=== PATIENT | male | born 2000 | race Caucasian/White ===

== ENCOUNTER 2021-09-29 09:56 | Emergency (ER) | payer OTHER ==
[2021-09-29 10:04] VITALS: BP 140/73
--- NOTE | 2021-09-29 10:28 | XRAY Report ---
PROCEDURE: Hand 3 View RT INDICATIONS: Trauma TECHNIQUE: 3 views of the hand(s) acquired. COMPARISON: None FINDINGS: Bones: Acute oblique fracture through proximal shaft of fifth metacarpal bone is seen with dorsal dis placement and angulation at fracture site. No suspicious bony lesions. Soft tissues: Significant soft tissue swelling over dorsal aspect of fifth metacarpal bone is seen. No suspicious soft tissue calcifications. IMPRESSION: Acute slightly displaced fracture involving proximal fifth metacarpal shaft with overlying soft tissu e swelling. No other fracture or dislocation. Reviewed by: Gui Navarro MD on 09/29/2021 10:26 AM PDT Approved by: Gui Navarro MD on 09/29/2021 10:26 AM PDT Station ID: [id number]
--- NOTE | 2021-09-29 11:20 | ED Physician Documentation ---
PD HPI UPPER EXT INJURY - Stated complaint Stated Complaint: RT HAND INJ - Chief complaint Chief Complaint: Trauma Ext - History obtained from History obtained from: Patient - History of Present Illness Location: Right, Hand Type of injury: Blunt / blow (assembling shelves and part fell onto his hand. Has been hurting since, and not improving.) Timing - onset: How many weeks ago (1) Timing - duration: Weeks (1) Timing - details: Abrupt onset, Still present Worsened by: Moving, Palpating Associated symptoms: Numbness (at times on side of little finger.). No: Weakness Similar symptoms before: Has not had sx before Review of Systems Skin: denies: Abrasion (s), Laceration (s) Neurologic: denies: Focal weakness PD PAST MEDICAL HISTORY - Past Medical History Cardiovascular: None Respiratory: None Musculoskeletal: None - Present Medications Home Medications: Ambulatory Orders Medication Instructions Recorded Confirmed Ibuprofen [Motrin] 600 mg PO TID PRN #25 tab 09/29/21 - Allergies Allergies/Adverse Reactions: Allergies Allergy/AdvReac Type Severity Reaction Status Date / Time No Known Drug Allergies Allergy Verified 09/29/21 10:00 PD ED PE NORMAL - Vitals Vital signs reviewed: Yes - General General: Alert and oriented X 3, No acute distress, Well developed/nourished - Derm Derm: Normal color, Warm and dry - Extremities Extremities: Other (right hand with swelling and tender over proximal 5th MC area. Able to flex little finger without malrotation. ) - Neuro Neuro: Alert and oriented X 3, No motor deficit, No sensory deficit Results - Vitals Vitals: Vital Signs - 24 hr 09/29/21 10:00 Temperature 36.5 C Heart Rate 100 Respiratory 16 Rate Blood Pressure 140/73 H O2 Saturation 100 - Rads (name of study) right hand Radiology: Prelim report reviewed (fracture proximal shaft 5th MC. slightly displaced. ), See rad report Procedures - Splint (location) velcro ulnar gutter Splint applied by: Physician Type of splint: Prefab velcro wrist (ulnar gutter configuration.) Other: Patient tolerated well, No complications, Neurovascular intact Departure - Departure Disposition: 01 Home, Self Care Clinical Impression: Fracture, metacarpal Qualifiers: Encounter type: initial encounter Metacarpal bone: fifth Fracture type: closed Metacarpal location: shaft Fracture alignment: nondisplaced Laterality: right Qualified Code(s): S62.356A - Nondisplaced fracture of shaft of fifth metacarpal bone, right hand, initial encounter for closed fracture Condition: Stable Record reviewed to determine appropriate education?: Yes Instructions: ED Robb Solitarioer Follow-Up: DEZ PETER MD [Primary Care Provider] - Prescriptions: Ibuprofen [Motrin] 600 mg PO TID PRN #25 tab PRN Reason: Pain Comments: Keep the splint on continuously for the next several weeks. You can remove it briefly for showers or cleansing but reapply it and even with sleeping etc. Less heavy use of the right hand (light use only for the next 2 to 3 weeks. Consider anti-inflammatory such as ibuprofen 3 times daily for the next several days to a week for pain and swelling. You do have a fracture of the fifth metacarpal bone. Follow-up with your primary care or orthopedics in about a week, call today for an appointment. We want to ensure maintains adequate position as its healing. Forms: Activity restrictions Discharge Date/Time: 09/29/21 11:46
== END 2021-09-29 11:46 | disposition home or self-care (01) ==
LOC: ED 09:56
DX: S62.326A Displaced fracture of shaft of fifth metacarpal bone, right hand, initial encounter for closed fracture (principal); W20.8XXA Other cause of strike by thrown, projected or falling object, initial encounter; Y93.H3 Activity, building and construction
CPT/HCPCS: 99283